=== PATIENT | female | born 1995 | race Two or more races ===

== ENCOUNTER 2017-08-08 19:38 | Emergency (ER) | payer MEDICAID ==
[~2017-08-08] VITALS: Ht 167.6 cm; Wt 77.6 kg
[2017-08-08 21:48] VITALS: BP 113/77
[2017-08-08] MEDS ORDERED: IBUPROFEN 600 MG TAB PO ONE ×2 (22:07→22:15)
== END 2017-08-08 22:17 | disposition home or self-care (01) ==
LOC: ER 19:38
DX: S93.401A Sprain of unspecified ligament of right ankle, initial encounter (principal); S39.012A Strain of muscle, fascia and tendon of lower back, initial encounter; S80.01XA Contusion of right knee, initial encounter; W01.0XXA Fall on same level from slipping, tripping and stumbling without subsequent striking against object, initial encounter; Y93.89 Activity, other specified; Y92.512 Supermarket, store or market as the place of occurrence of the external cause; Y99.8 Other external cause status
CPT/HCPCS: 72100; 73562; 73610

== ENCOUNTER 2017-08-14 20:52 | Emergency (ER) | payer MEDICAID ==
[~2017-08-14] VITALS: Ht 167.6 cm; Wt 77.6 kg
[2017-08-14 21:04] VITALS: BP 150/76
[2017-08-15] MEDS ORDERED: IBUPROFEN 600 MG TAB PO ONE (00:45)
== END 2017-08-15 00:48 | disposition home or self-care (01) ==
LOC: ER 20:52
DX: S93.401A Sprain of unspecified ligament of right ankle, initial encounter (principal); X50.1XXA Overexertion from prolonged static or awkward postures, initial encounter; Y93.89 Activity, other specified; Y92.89 Other specified places as the place of occurrence of the external cause; Y99.8 Other external cause status
CPT/HCPCS: 73700

== ENCOUNTER 2017-11-23 15:58 | Emergency (ER) | payer MEDICAID ==
[~2017-11-23] VITALS: Ht 167.6 cm; Wt 81.6 kg
[2017-11-23 17:15] LABS: Basophils # (auto) 0 uL; Eosinophils # (auto) 0.1 uL; Hematocrit 30.8 % (36.0-46.0); Hemoglobin 9.4 g/dL (12.2-16.2); Mean Corpuscular Hemoglobin 18.4 pg (28.0-32.0); Mean Corpuscular Hgb Conc. 30.5 g/dL (32.0-36.0); Monocytes # (auto) 0.4 uL; Neutrophils # (auto) 5.4 uL
[2017-11-23 17:18] LABS: Basophils % (auto) 0.4 % (0.0-2.0); Lymphocytes # (auto) 1.9 uL; Mean Corpuscular Volume 60.3 fL (80.0-100.0); Monocytes % (auto) 5.3 % (0.0-12.0); Neutrophils % (auto) 69.3 % (37.0-80.0); Nucleated Red Blood Cells % 0.1 %; Platelet Count (auto) 325 10^3/uL (140-450); Red Cell Distribution Width 18.5 % (11.8-14.3); White Blood Cell 7.8 10^3/uL (4.4-10.8)
[2017-11-23 17:22] LABS: Urine Bacteria NONE SEEN /hpf (None Seen); Urine Blood Negative /uL (Negative); Urine Mucus FEW (None Seen); Urine Specific Gravity 1.014 (1.001-1.035); Urine WBC 1 /hpf (0 - 5)
[2017-11-23 17:33] LABS: Calcium 8.3 mg/dL (8.5-10.1); Potassium 3.7 mmol/L (3.5-5.1)
[2017-11-23 17:36] LABS: Albumin 3.7 g/dL (3.4-5.0); BUN/Creatinine Ratio 9.5
[2017-11-23 17:38] LABS: Bilirubin, Total 0.6 mg/dL (0.2-1.0); Total Protein 7.9 g/dL (6.4-8.2)
[2017-11-23] MEDS ORDERED: KETOROLAC TROMETH 30 MG/ML 1ML VIAL IV ONE (21:30)
[2017-11-23] MEDS ORDERED: MORPHINE SULFATE 4 MG/ML SYR/VIAL IV ONE (21:30)
[2017-11-23] MEDS ORDERED: ONDANSETRON HCL 4 MG/2 ML VIAL IV ONE (21:30)
[2017-11-23 21:38] LABS: Amylase 85 U/L (25-115); Lipase 298 U/L (73-393)
[2017-11-23] MEDS ORDERED: SODIUM CHLORIDE 0.9% 1,000 ML IV ONE (21:45)
[2017-11-23 21:50] LABS: INR 0.96 (0.9-1.15); Partial Thromboplastin Time 23.8 sec (22.64-33.71); Prothrombin Time 10.5 sec (9.37-12.3)
[2017-11-23 23:00] VITALS: BP 100/63
[2017-11-24] MEDS ORDERED: HYDROcodone-ACET 7.5/325MG TAB PO ONE
== END 2017-11-24 00:02 | disposition home or self-care (01) ==
LOC: ER 15:58
DX: R10.32 Left lower quadrant pain (principal); D64.9 Anemia, unspecified
CPT/HCPCS: 36415; 74176; 80053; 81001; 81025; 82150; 83690; 85025; 85610; 85730; 96361; 96374; 96375; 99285; J1885; J2270; J2405; J7030

== ENCOUNTER 2017-12-30 22:51 | Emergency (ER) | payer MEDICAID ==
[~2017-12-30] VITALS: Ht 167.6 cm; Wt 79.7 kg
[2017-12-30 23:28] LABS: Urine Bacteria FEW /hpf (None Seen); Urine Blood Negative /uL (Negative); Urine Mucus FEW (None Seen); Urine WBC 5 /hpf (0 - 5)
[2017-12-30 23:37] LABS: Basophils # (auto) 0 uL; Basophils % (auto) 0.7 % (0.0-2.0); Eosinophils # (auto) 0.1 uL; Hemoglobin 8.6 g/dL (12.2-16.2); Neutrophils # (auto) 3.8 uL; Nucleated Red Blood Cells % 0.1 %; Red Cell Distribution Width 18.3 % (11.8-14.3); White Blood Cell 6.9 10^3/uL (4.4-10.8)
[2017-12-30 23:39] LABS: Eosinophils % (auto) 1.7 % (0.0-7.0); Hematocrit 28.5 % (36.0-46.0); Lymphocytes # (auto) 2.6 uL; Lymphocytes % (auto) 36.9 % (10.0-50.0); Mean Corpuscular Hemoglobin 17.7 pg (28.0-32.0); Mean Corpuscular Hgb Conc. 30.2 g/dL (32.0-36.0); Mean Corpuscular Volume 58.5 fL (80.0-100.0); Monocytes # (auto) 0.4 uL; Monocytes % (auto) 6.4 % (0.0-12.0); Neutrophils % (auto) 54.3 % (37.0-80.0); Platelet Count (auto) 286 10^3/uL (140-450); Red Blood Cells 4.87 10^6/uL (4.0-5.20)
[2017-12-30 23:57] LABS: Albumin 3.6 g/dL (3.4-5.0); BUN/Creatinine Ratio 13.6; Calcium 8.6 mg/dL (8.5-10.1); Potassium 3.4 mmol/L (3.5-5.1)
[2017-12-30 23:59] LABS: Bilirubin, Total 0.6 mg/dL (0.2-1.0); Total Protein 7.6 g/dL (6.4-8.2)
[2017-12-31 06:53] VITALS: BP 109/67
== END 2017-12-31 08:05 | disposition home or self-care (01) ==
LOC: ER 22:53
DX: D64.9 Anemia, unspecified (principal); N39.0 Urinary tract infection, site not specified; S06.9X9A Unspecified intracranial injury with loss of consciousness of unspecified duration, initial encounter; W50.0XXA Accidental hit or strike by another person, initial encounter; Y93.67 Activity, basketball; Y99.8 Other external cause status; Y92.89 Other specified places as the place of occurrence of the external cause
CPT/HCPCS: 36415; 70450; 72125; 80053; 81001; 81025; 85025

== ENCOUNTER 2019-12-02 20:59 | Emergency (ER) | payer MEDICAID ==
[~2019-12-02] VITALS: Ht 167.6 cm; Wt 76.2 kg
[2019-12-03 01:39] VITALS: BP 110/67
[2019-12-03] MEDS ORDERED: IBUPROFEN 800 MG TAB PO ONE (01:45)
[2019-12-03] MEDS ORDERED: ONDANSETRON ODT 4 MG TAB PO ONE (01:45)
[2019-12-03] MEDS ORDERED: ACETAMINOPHEN 500 MG TAB PO ONE (01:45)
== END 2019-12-03 02:11 | disposition home or self-care (01) ==
LOC: ER 21:01
DX: M54.2 Cervicalgia (principal); M54.5 Low back pain; R51 Headache; M25.552 Pain in left hip; M25.512 Pain in left shoulder; R42 Dizziness and giddiness; V43.52XA Car driver injured in collision with other type car in traffic accident, initial encounter; Y93.89 Activity, other specified; Y92.488 Other paved roadways as the place of occurrence of the external cause; Y99.8 Other external cause status
CPT/HCPCS: 70450; 73502; 73552; 99284; J7030; Q0162

== ENCOUNTER → 2020-02-15 | Emergency (ER) | payer MEDICAID, OTHER ==
[~2020-02-15] VITALS: Ht 167.6 cm; Wt 81.2 kg
[~2020-02-15] MED LIST: ACETAMINOPHEN 500 MG TAB PO ONE; AMIODARONE 450mg/250ml AE 250 ML IV ONE; AMIODARONE HCL (50 MG/ ML) 3 ML VIAL IV ONE; SODIUM CHLORIDE 0.9% 1,000 ML IV ONE
[2020-02-15 22:25] LABS: Eosinophils # (auto) 0.1 10 ^3/uL (0-0.8); Hemoglobin 8.9 g/dL (12.2-16.2); Lymphocytes # (auto) 1.5 10 ^3/uL (0.4-5.4)
[2020-02-15 22:27] LABS: Basophils # (auto) 0.1 10 ^3/uL (0-0.2); Basophils % (auto) 0.8 % (0.0-2.0); Eosinophils % (auto) 1.3 % (0.0-7.0); Hematocrit 29.5 % (36.0-46.0); Lymphocytes % (auto) 21.9 % (10.0-50.0); Mean Corpuscular Hgb Conc. 30.2 g/dL (32.0-36.0); Mean Corpuscular Volume 56.4 fL (80.0-100.0); Monocytes # (auto) 0.5 10 ^3/uL (0-1.3); Monocytes % (auto) 6.6 % (0.0-12.0); Neutrophils # (auto) 4.9 10 ^3/uL (1.6-8.6); Neutrophils % (auto) 69.4 % (37.0-80.0); Platelet Count (auto) 288 10^3/uL (140-450); Red Blood Cells 5.22 10^6/uL (4.0-5.20)
[2020-02-15 22:32] LABS: Red Cell Distribution Width 20.3 % (11.8-14.3)
[2020-02-15 22:43] LABS: Urine Bacteria FEW /hpf (None Seen); Urine Blood Negative /uL (Negative); Urine Mucus FEW (None Seen); Urine Specific Gravity 1.007 (1.001-1.035); Urine WBC 1 /hpf (0 - 5)
[2020-02-15 22:43] LABS: Albumin 3.7 g/dL (3.4-5.0); BUN/Creatinine Ratio 9.7; Calcium 8.6 mg/dL (8.5-10.1); Potassium 3.7 mmol/L (3.5-5.1)
[2020-02-15 22:46] LABS: Bilirubin, Total 0.6 mg/dL (0.2-1.0); Total Protein 8.1 g/dL (6.4-8.2)
[2020-02-16 01:49] VITALS: BP 110/60
== END | disposition home or self-care (01) ==
LOC: ER 21:58
DX: O26.891 Other specified pregnancy related conditions, first trimester (principal); R10.9 Unspecified abdominal pain; Z3A.01 Less than 8 weeks gestation of pregnancy
CPT/HCPCS: 36415; 76801; 80053; 81001; 81025; 84702; 85025; 99284; J7030

== ENCOUNTER → 2020-03-30 | Emergency (ER) | payer MEDICAID ==
[~2020-03-30] VITALS: Ht 170.2 cm; Wt 81.2 kg
[~2020-03-30] MED LIST changes: +ACETAMINOPHEN 325 MG TAB PO ONE; -ACETAMINOPHEN 500 MG TAB PO ONE; -AMIODARONE 450mg/250ml AE 250 ML IV ONE; -AMIODARONE HCL (50 MG/ ML) 3 ML VIAL IV ONE
[2020-03-31 00:39] LABS: Basophils # (auto) 0 10 ^3/uL (0-0.2); Eosinophils # (auto) 0 10 ^3/uL (0-0.8); Eosinophils % (auto) 0.2 % (0.0-7.0); Hemoglobin 10.5 g/dL (12.2-16.2); Lymphocytes # (auto) 0.3 10 ^3/uL (0.4-5.4); Monocytes # (auto) 0.4 10 ^3/uL (0-1.3); Nucleated Red Blood Cells % 0.1 %
[2020-03-31 00:41] LABS: Basophils % (auto) 0.3 % (0.0-2.0); Hematocrit 32.6 % (36.0-46.0); Lymphocytes % (auto) 7.2 % (10.0-50.0); Mean Corpuscular Hemoglobin 20.4 pg (28.0-32.0); Mean Corpuscular Hgb Conc. 32.3 g/dL (32.0-36.0); Mean Corpuscular Volume 63.1 fL (80.0-100.0); Monocytes % (auto) 7.9 % (0.0-12.0); Neutrophils # (auto) 3.9 10 ^3/uL (1.6-8.6); Neutrophils % (auto) 84.4 % (37.0-80.0); Platelet Count (auto) 185 10^3/uL (140-450); Red Blood Cells 5.18 10^6/uL (4.0-5.20); White Blood Cell 4.7 10^3/uL (4.4-10.8)
[2020-03-31 00:43] LABS: Red Cell Distribution Width 25.8 % (11.8-14.3)
[2020-03-31 00:57] LABS: Calcium 8.4 mg/dL (8.5-10.1); Potassium 3.5 mmol/L (3.5-5.1)
[2020-03-31 00:58] LABS: BUN/Creatinine Ratio 9.5
[2020-03-31 02:07] LABS: Urine Bacteria FEW /hpf (None Seen); Urine Blood Negative /uL (Negative); Urine Mucus FEW (None Seen); Urine Specific Gravity 1.027 (1.001-1.035); Urine WBC 4 /hpf (0 - 5)
[2020-03-31 02:35] VITALS: BP 110/69
== END | disposition home or self-care (01) ==
LOC: ER 21:03
DX: O98.512 Other viral diseases complicating pregnancy, second trimester (principal); U07.1 COVID-19; O99.512 Diseases of the respiratory system complicating pregnancy, second trimester; J18.9 Pneumonia, unspecified organism; J01.00 Acute maxillary sinusitis, unspecified
CPT/HCPCS: 36415; 76700; 80048; 81001; 82728; 84702; 85025; 87070; 87635; 87804; 87880

== ENCOUNTER → 2020-04-07 | Emergency (ER) | payer MEDICAID ==
[~2020-04-07] VITALS: Ht 170.2 cm; Wt 80.7 kg
[2020-04-07 16:13] LABS: Basophils # (auto) 0 10 ^3/uL (0-0.2); Basophils % (auto) 0.3 % (0.0-2.0); Eosinophils # (auto) 0 10 ^3/uL (0-0.8); Lymphocytes # (auto) 1.4 10 ^3/uL (0.4-5.4); Mean Corpuscular Volume 64.2 fL (80.0-100.0); Monocytes # (auto) 0.3 10 ^3/uL (0-1.3); Neutrophils # (auto) 2.2 10 ^3/uL (1.6-8.6); Nucleated Red Blood Cells % 0.1 %
[2020-04-07 16:14] LABS: Anion Gap 6 (5-15); Blood Urea Nitrogen 4 mg/dL (7-18); Calcium 8.6 mg/dL (8.5-10.1); Carbon Dioxide 21 mmol/L (21-32); Chloride 108 mmol/L (98-107); Glucose 86 mg/dL (74-106); Potassium 3.6 mmol/L (3.5-5.1); Sodium 135 mmol/L (136-145)
[2020-04-07 16:15] LABS: Hematocrit 33.8 % (36.0-46.0); Hemoglobin 10.6 g/dL (12.2-16.2); Lymphocytes % (auto) 35.3 % (10.0-50.0); Mean Corpuscular Hemoglobin 20.1 pg (28.0-32.0); Mean Corpuscular Hgb Conc. 31.3 g/dL (32.0-36.0); Monocytes % (auto) 7.8 % (0.0-12.0); Neutrophils % (auto) 55.6 % (37.0-80.0); Platelet Count (auto) 185 10^3/uL (140-450); Red Blood Cells 5.26 10^6/uL (4.0-5.20)
[2020-04-07 16:16] LABS: Red Cell Distribution Width 24.5 % (11.8-14.3)
[2020-04-07 16:21] LABS: Alanine Aminotransferase 22 U/L (13-56); Alkaline Phosphatase 50 U/L (45-117); Aspartate Aminotransferase 16 U/L (15-37); BUN/Creatinine Ratio 8.3; Bilirubin, Total 0.4 mg/dL (0.2-1.0); GFR African American 204 mL/min; GFR Non-African American 169 mL/min; Total Protein 7.4 g/dL (6.4-8.2)
[2020-04-07 20:10] VITALS: BP 106/70
== END | disposition home or self-care (01) ==
LOC: EDUNIT# 14:52 → ER 15:20 → EDBD 15:20
DX: O98.512 Other viral diseases complicating pregnancy, second trimester (principal); U07.1 COVID-19; J06.9 Acute upper respiratory infection, unspecified; O99.012 Anemia complicating pregnancy, second trimester; Z3A.15 15 weeks gestation of pregnancy
CPT/HCPCS: 36415; 80053; 84484; 84702; 85025

== ENCOUNTER 2020-06-21 10:30 | Observation (INO) | payer MEDICAID ==
[2020-06-21] MEDS ORDERED: ACETAMINOPHEN 325 MG TAB PO ONE (13:00)
== END 2020-06-21 13:00 | disposition home or self-care (01) ==
LOC: LDRP 10:30
PROVIDERS: ADMIT Specialist; ATTEND Specialist
DX: O9A.212 Injury, poisoning and certain other consequences of external causes complicating pregnancy, second trimester (principal); O26.892 Other specified pregnancy related conditions, second trimester; R51 Headache; V49.60XA Unspecified car occupant injured in collision with unspecified motor vehicles in traffic accident, initial encounter; Y93.89 Activity, other specified; Y92.89 Other specified places as the place of occurrence of the external cause; Y99.8 Other external cause status; Z3A.26 26 weeks gestation of pregnancy
CPT/HCPCS: 59025; 76815; 81002; G0378

== ENCOUNTER 2020-06-21 13:07 | Emergency (ER) | payer MEDICAID, OTHER ==
[~2020-06-21] VITALS: Ht 170.2 cm; Wt 82.1 kg
[2020-06-21 15:17] VITALS: BP 100/67
== END 2020-06-21 15:57 | disposition home or self-care (01) ==
LOC: ER 13:07
DX: O9A.212 Injury, poisoning and certain other consequences of external causes complicating pregnancy, second trimester (principal); R51 Headache; M54.2 Cervicalgia; R42 Dizziness and giddiness; R20.2 Paresthesia of skin; Z3A.24 24 weeks gestation of pregnancy; V89.2XXA Person injured in unspecified motor-vehicle accident, traffic, initial encounter; Y93.I9 Activity, other involving external motion; Y92.89 Other specified places as the place of occurrence of the external cause; Y99.8 Other external cause status

== ENCOUNTER 2020-09-28 11:36 | Observation (INO) | payer MEDICAID | END 2020-09-28 14:00 | disposition home or self-care (01) | LOC: OB 11:36 → LDRP 12:55 | PROVIDERS: ADMIT Specialist; ATTEND Specialist | DX: O48.0 Post-term pregnancy (principal); Z3A.40 40 weeks gestation of pregnancy | CPT/HCPCS: 59025; 76818; 81002; G0378 ==

== ENCOUNTER 2020-09-30 10:20 | Observation (INO) | payer MEDICAID ==
[2020-09-30] MEDS ORDERED: PREN-96 PO (10:31)
[2020-09-30] MEDS ORDERED: FERR-7 PO (10:43)
[2020-09-30 12:09] LABS: Alcohol, Urine < 3.0 mg/dL (0-10); Amphetamine Screen, Urine NEGATIVE (NEGATIVE); Barbiturate Scree,Urine NEGATIVE (NEGATIVE); Benzodiazephine Screen, Urine NEGATIVE (NEGATIVE); Cannabinoid Screen, Urine NEGATIVE (NEGATIVE); Cocaine Screen, Urine NEGATIVE (NEGATIVE); Opiate Scree,Urine NEGATIVE (NEGATIVE); Phencyclidine Screen, Urine NEGATIVE (NEGATIVE)
[2020-09-30 12:24] LABS: Urine Bacteria MANY /hpf (None Seen); Urine Blood Negative /uL (Negative); Urine Mucus FEW (None Seen); Urine Specific Gravity 1.021 (1.001-1.035); Urine WBC 17 /hpf (0 - 5)
[2020-09-30 12:25] LABS: Basophils # (auto) 0 10 ^3/uL (0-0.2); Basophils % (auto) 0.2 % (0.0-2.0); Eosinophils # (auto) 0 10 ^3/uL (0-0.8); Eosinophils % (auto) 0.7 % (0.0-7.0); Hematocrit 35.2 % (36.0-46.0); Hemoglobin 12.4 g/dL (12.2-16.2); Lymphocytes # (auto) 1.5 10 ^3/uL (0.4-5.4); Mean Corpuscular Hemoglobin 30.4 pg (28.0-32.0); Mean Corpuscular Hgb Conc. 35.3 g/dL (32.0-36.0); Mean Corpuscular Volume 86.3 fL (80.0-100.0); Monocytes # (auto) 0.3 10 ^3/uL (0-1.3); Neutrophils # (auto) 4.5 10 ^3/uL (1.6-8.6); Neutrophils % (auto) 71.1 % (37.0-80.0); Platelet Count (auto) 159 10^3/uL (140-450); Red Blood Cells 4.07 10^6/uL (4.0-5.20); Red Cell Distribution Width 13.4 % (11.8-14.3); White Blood Cell 6.4 10^3/uL (4.4-10.8)
[2020-09-30 12:31] LABS: INR 0.93 (0.9-1.15); Partial Thromboplastin Time 23.3 sec (23.0-31.2)
[2020-09-30 12:32] LABS: Albumin 2.8 g/dL (3.4-5.0); Calcium 8.6 mg/dL (8.5-10.1); Potassium 4.1 mmol/L (3.5-5.1)
[2020-09-30 12:36] LABS: BUN/Creatinine Ratio 15.5; Bilirubin, Total 0.7 mg/dL (0.2-1.0)
[2020-10-02 06:06] LABS: RPR Non Reactive (Non Reactive)
== END 2020-09-30 11:55 | disposition home or self-care (01) ==
LOC: LDRP 10:20
PROVIDERS: ADMIT Obstetrics & Gynecology; ATTEND Obstetrics & Gynecology
DX: O48.0 Post-term pregnancy (principal); O62.9 Abnormality of forces of labor, unspecified; Z3A.40 40 weeks gestation of pregnancy
CPT/HCPCS: 36415; 59025; 76818; 80053; 80307; 81001; 81002; 85025; 85610; 85730; 86592; 86703; 86762; 86850; 86900; 86901; 87340; G0378

== ENCOUNTER 2020-10-03 10:59 | Observation (INO) | payer MEDICAID ==
[~2020-10-03 10:59] MED LIST changes: -ACETAMINOPHEN 325 MG TAB PO ONE; +FERR-7 PO; +PREN-96 PO; -SODIUM CHLORIDE 0.9% 1,000 ML IV ONE
[2020-10-03] MEDS ORDERED: PHISODERM TOP SOLN 240ML BTL TOP PRN (14:30)
[2020-10-03] MEDS ORDERED: LACTATED RINGER'S 1,000 ML IV SCH (14:30)
[2020-10-03] MEDS ORDERED: WITCH HAZEL-GLYCERIN PAD TOP PRN (14:30)
[2020-10-03] MEDS ORDERED: LIDOCAINE 2%HCL (LOCAL ANESTH.) INJ 20ML MDV IJ ONE (14:30)
[2020-10-03] MEDS ORDERED: DERMOPLAST 60ML BOTTLE TOP PRN (14:30)
== END 2020-10-03 12:35 | disposition home or self-care (01) ==
LOC: LDRP 10:59
PROVIDERS: ADMIT Obstetrics & Gynecology; ATTEND Obstetrics & Gynecology
DX: O48.0 Post-term pregnancy (principal); O62.9 Abnormality of forces of labor, unspecified; Z3A.41 41 weeks gestation of pregnancy
CPT/HCPCS: 59025; 76818; 81002; G0378; J7050

== ENCOUNTER 2020-10-03 13:15 | Inpatient (IN) | payer MEDICAID ==
[~2020-10-03] VITALS: Ht 167.6 cm; Wt 86.2 kg
[2020-10-03] MEDS ORDERED: WITCH HAZEL-GLYCERIN PAD TOP PRN (14:30)
[2020-10-03] MEDS ORDERED: PHISODERM TOP SOLN 240ML BTL TOP PRN (14:30)
[2020-10-03] MEDS ORDERED: LIDOCAINE 2%HCL (LOCAL ANESTH.) INJ 20ML MDV IJ ONE ×2 (14:30→15:30)
[2020-10-03] MEDS ORDERED: LACTATED RINGER'S 1,000 ML IV SCH (14:30)
[2020-10-03] MEDS ORDERED: DERMOPLAST 60ML BOTTLE TOP PRN (14:30)
[2020-10-03] MEDS ORDERED: miSOPROStol 50 MCG per PRE-CUT 1/2 TAB PO PRN (15:30)
[2020-10-03 15:52] LABS: Basophils # (auto) 0 10 ^3/uL (0-0.2); Basophils % (auto) 0.2 % (0.0-2.0); Eosinophils # (auto) 0 10 ^3/uL (0-0.8); Eosinophils % (auto) 0.4 % (0.0-7.0); Hematocrit 34.7 % (36.0-46.0); Hemoglobin 12.2 g/dL (12.2-16.2); Lymphocytes # (auto) 1.3 10 ^3/uL (0.4-5.4); Lymphocytes % (auto) 22.3 % (10.0-50.0); Mean Corpuscular Hemoglobin 30.5 pg (28.0-32.0); Mean Corpuscular Hgb Conc. 35.3 g/dL (32.0-36.0); Mean Corpuscular Volume 86.4 fL (80.0-100.0); Monocytes # (auto) 0.3 10 ^3/uL (0-1.3); Monocytes % (auto) 4.8 % (0.0-12.0); Neutrophils # (auto) 4.3 10 ^3/uL (1.6-8.6); Neutrophils % (auto) 72.3 % (37.0-80.0); Nucleated Red Blood Cells % 0.1 %; Platelet Count (auto) 151 10^3/uL (140-450); Red Blood Cells 4.02 10^6/uL (4.0-5.20); Red Cell Distribution Width 13.8 % (11.8-14.3)
[2020-10-03 16:04] LABS: Albumin 2.7 g/dL (3.4-5.0); Calcium 8.5 mg/dL (8.5-10.1); Potassium 3.6 mmol/L (3.5-5.1)
[2020-10-03 16:07] LABS: BUN/Creatinine Ratio 13.6; Bilirubin, Total 0.6 mg/dL (0.2-1.0); Total Protein 6.8 g/dL (6.4-8.2)
[2020-10-03 16:08] LABS: INR 0.93 (0.9-1.15); Partial Thromboplastin Time 23.8 sec (23.0-31.2)
[2020-10-03 16:39] LABS: Urine Bacteria NONE SEEN /hpf (None Seen); Urine Blood Negative /uL (Negative); Urine Mucus FEW (None Seen); Urine Specific Gravity 1.023 (1.001-1.035); Urine WBC 1 /hpf (0 - 5)
[2020-10-03] MEDS: WITCH HAZEL-GLYCERIN PAD TOP PRN (17:11)
[2020-10-03] MEDS: PHISODERM TOP SOLN 240ML BTL TOP PRN (17:12)
[2020-10-03] MEDS: DERMOPLAST 60ML BOTTLE TOP PRN (17:12)
[2020-10-03] MEDS ORDERED: BUTORPHANOL TARTRATE 2 MG/1 ML VIAL IV PRN (21:30)
[2020-10-03] MEDS ORDERED: PROMETHAZINE HCL 25 MG/ML 1ML IV PRN (21:30)
[2020-10-03] MEDS: BUTORPHANOL TARTRATE 2 MG/1 ML VIAL IV PRN (21:46)
[2020-10-03] MEDS: LACTATED RINGER'S 1,000 ML IV SCH (23:15)
[2020-10-04] VITALS (15 sets, daily range): BP systolic 89–110; BP diastolic 53–81
[2020-10-04] MEDS ORDERED: LACT. RINGERS/OXYTOCIN 20UNITS 1,000 ML IV ONE ×2 (01:15→08:30)
[2020-10-04] MEDS ORDERED: LACT. RINGERS/OXYTOCIN 20UNITS 1,000 ML IV SCH (01:15)
[2020-10-04] MEDS: BUTORPHANOL TARTRATE 2 MG/1 ML VIAL IV PRN ×2 (02:18→07:15)
[2020-10-04] MEDS: LACTATED RINGER'S 1,000 ML IV SCH ×4 (02:26→23:07)
[2020-10-04 08:06] LABS: RPR Non Reactive (Non Reactive)
[2020-10-04] MEDS: WITCH HAZEL-GLYCERIN PAD TOP PRN (08:45)
[2020-10-04] MEDS: PHISODERM TOP SOLN 240ML BTL TOP PRN (08:45)
[2020-10-04] MEDS: DERMOPLAST 60ML BOTTLE TOP PRN (08:45)
[2020-10-04] MEDS: IBUPROFEN 600 MG TAB PO PRN ×2 (09:35→23:07)
[2020-10-04] MEDS ORDERED: METHYLERGONOVINE MALEATE 0.2 MG/ML AMP IM ONE ×2 (12:05→13:40)
[2020-10-04 12:49] LABS: Basophils # (auto) 0 10 ^3/uL (0-0.2); Basophils % (auto) 0.1 % (0.0-2.0); Eosinophils # (auto) 0 10 ^3/uL (0-0.8); Hematocrit 27.9 % (36.0-46.0); Hemoglobin 9.9 g/dL (12.2-16.2); Lymphocytes # (auto) 0.8 10 ^3/uL (0.4-5.4); Lymphocytes % (auto) 7.9 % (10.0-50.0); Mean Corpuscular Hemoglobin 30.7 pg (28.0-32.0); Mean Corpuscular Hgb Conc. 35.4 g/dL (32.0-36.0); Mean Corpuscular Volume 86.8 fL (80.0-100.0); Monocytes # (auto) 0.5 10 ^3/uL (0-1.3); Monocytes % (auto) 4.8 % (0.0-12.0); Neutrophils # (auto) 8.7 10 ^3/uL (1.6-8.6); Neutrophils % (auto) 87.2 % (37.0-80.0); Nucleated Red Blood Cells % 0.1 %; Platelet Count (auto) 120 10^3/uL (140-450); Red Blood Cells 3.21 10^6/uL (4.0-5.20); Red Cell Distribution Width 13.5 % (11.8-14.3)
[2020-10-04] MEDS ORDERED: MIDAZOLAM HCL 1MG/1ML-2 ML VIAL ONE (12:52)
[2020-10-04] MEDS ORDERED: fentaNYL CITRATE 100 MCG/2 ML VL ONE (12:52)
[2020-10-04] MEDS ORDERED: ONDANSETRON HCL 4 MG/2 ML VIAL IV PRN (14:15)
[2020-10-04] MEDS ORDERED: miSOPROStol 100 mcg TAB PR ONE ×2 (15:45→16:00)
[2020-10-04] MEDS ORDERED: miSOPROStol 100 mcg TAB SL ONE (15:45)
[2020-10-04] MEDS: ceFAZolin 1GM/50ML 50 ML IV SCH ×2 (15:54→23:56)
[2020-10-04] MEDS ORDERED: ACETAMINOPHEN IV 1000 MG/100ML (10MG/ML) IV ONE (16:00)
[2020-10-04] MEDS ORDERED: ACETAMINOPHEN IV 100 ML IV ONE (16:19)
[2020-10-04 17:57] LABS: Basophils # (auto) 0 10 ^3/uL (0-0.2); Basophils % (auto) 0.2 % (0.0-2.0); Eosinophils # (auto) 0 10 ^3/uL (0-0.8); Hematocrit 30.4 % (36.0-46.0); Hemoglobin 10.5 g/dL (12.2-16.2); Lymphocytes # (auto) 1.1 10 ^3/uL (0.4-5.4); Lymphocytes % (auto) 11.3 % (10.0-50.0); Mean Corpuscular Hemoglobin 30.9 pg (28.0-32.0); Mean Corpuscular Hgb Conc. 34.6 g/dL (32.0-36.0); Mean Corpuscular Volume 89.2 fL (80.0-100.0); Monocytes # (auto) 0.4 10 ^3/uL (0-1.3); Monocytes % (auto) 4.1 % (0.0-12.0); Neutrophils % (auto) 84.4 % (37.0-80.0); Platelet Count (auto) 104 10^3/uL (140-450); Red Cell Distribution Width 13.8 % (11.8-14.3); White Blood Cell 9.5 10^3/uL (4.4-10.8)
[2020-10-04] MEDS ORDERED: miSOPROStol 100 mcg TAB PO ONE (18:43)
[2020-10-04] MEDS ORDERED: ceFAZolin 1GM/50ML 50 ML IV SCH (22:00)
[2020-10-05 03:00] VITALS: BP 101/68
[2020-10-05] MEDS: LACTATED RINGER'S 1,000 ML IV SCH ×2 (03:35→17:53)
[2020-10-05] MEDS: ACETAMINOPHEN 325 MG TAB PO PRN ×2 (05:17→15:46)
[2020-10-05 06:39] LABS: Basophils # (auto) 0 10 ^3/uL (0-0.2); Basophils % (auto) 0.1 % (0.0-2.0); Eosinophils # (auto) 0 10 ^3/uL (0-0.8); Eosinophils % (auto) 0.3 % (0.0-7.0); Hematocrit 24.6 % (36.0-46.0); Hemoglobin 8.6 g/dL (12.2-16.2); Lymphocytes # (auto) 1.6 10 ^3/uL (0.4-5.4); Lymphocytes % (auto) 19.6 % (10.0-50.0); Mean Corpuscular Hemoglobin 31.1 pg (28.0-32.0); Mean Corpuscular Volume 88.7 fL (80.0-100.0); Monocytes # (auto) 0.4 10 ^3/uL (0-1.3); Monocytes % (auto) 4.9 % (0.0-12.0); Neutrophils # (auto) 6.1 10 ^3/uL (1.6-8.6); Neutrophils % (auto) 75.1 % (37.0-80.0); Platelet Count (auto) 99 10^3/uL (140-450); Red Blood Cells 2.77 10^6/uL (4.0-5.20); Red Cell Distribution Width 14.2 % (11.8-14.3); White Blood Cell 8.1 10^3/uL (4.4-10.8)
[2020-10-05 07:30] VITALS: BP 109/72
[2020-10-05] MEDS: ceFAZolin 1GM/50ML 50 ML IV SCH ×3 (07:47→23:48)
[2020-10-05 11:30] VITALS: BP 105/58
[2020-10-05 14:56] VITALS: BP 114/72
[2020-10-05] MEDS: FERROUS SULFATE 325 MG TAB PO SCH (17:31)
[2020-10-05 19:00] VITALS: BP 121/70
[2020-10-05 23:00] VITALS: BP 101/58
[2020-10-05] MEDS: IBUPROFEN 600 MG TAB PO PRN (23:49)
[2020-10-06 03:00] VITALS: BP 104/71
[2020-10-06 07:00] VITALS: BP 98/63
[2020-10-06] MEDS: FERROUS SULFATE 325 MG TAB PO SCH (08:23)
[2020-10-06] MEDS: IBUPROFEN 600 MG TAB PO PRN (09:52)
[2020-10-06] MEDS ORDERED: IBUP400T21 PO (09:59)
[2020-10-06 11:00] VITALS: BP 101/65
[2020-10-06 11:40] VITALS: BP 111/77
== END 2020-10-06 12:18 | disposition home or self-care (01) | DRG 541 ==
LOC: LDRP 13:15
PROVIDERS: ADMIT Specialist; ATTEND Specialist
PROC: 10D07Z6 Extraction of Products of Conception, Vacuum, Via Natural or Artificial Opening (ICD-10-PCS; 2020-10-04)
PROC: 0HQ9XZZ Repair Perineum Skin, External Approach (ICD-10-PCS; 2020-10-04)
PROC: 0W8NXZZ Division of Female Perineum, External Approach (ICD-10-PCS; 2020-10-04)
PROC: 10D17Z9 Manual Extraction of Products of Conception, Retained, Via Natural or Artificial Opening (ICD-10-PCS; 2020-10-04)
PROC: 30233N1 Transfusion of Nonautologous Red Blood Cells into Peripheral Vein, Percutaneous Approach (ICD-10-PCS; principal; 2020-10-04 12:45)
DX: O48.0 Post-term pregnancy (principal); O77.0 Labor and delivery complicated by meconium in amniotic fluid; O69.81X0 Labor and delivery complicated by cord around neck, without compression, not applicable or unspecified; O70.0 First degree perineal laceration during delivery; Z3A.41 41 weeks gestation of pregnancy; Z37.0 Single live birth; Z20.822 Contact with and (suspected) exposure to COVID-19; O72.0 Third-stage hemorrhage
CPT/HCPCS: 36415; 36430; 59025; 59200; 59409; 80053; 81001; 81002; 85025; 85610; 85730; 86592; 86850; 86900; 86901; 86920; 87426; 96360; 96361; 96365; 96372; 96375; G0378; J0131; J0690; J2250; J2590

== ENCOUNTER 2021-11-16 05:19 | Emergency (ER) | payer MEDICAID ==
[~2021-11-16] VITALS: Ht 170.2 cm; Wt 81.6 kg
[~2021-11-16 05:19] MED LIST changes: +IBUP400T22 PO
[2021-11-16 06:37] LABS: Urine Bacteria FEW /hpf (None Seen); Urine Blood TRACE /uL (Negative); Urine Mucus FEW (None Seen); Urine WBC 32 /hpf (0 - 5)
[2021-11-16] MEDS ORDERED: NITR-87 PO (07:16)
[2021-11-16] MEDS ORDERED: PANT40TA2 PO (07:16)
[2021-11-16] MEDS ORDERED: PANTOPRAZOLE 40 MG TAB PO ONE (07:30)
[2021-11-16 07:31] LABS: Basophils # (auto) 0 10 ^3/uL (0-0.2); Basophils % (auto) 0.3 % (0.0-2.0); Eosinophils # (auto) 0.1 10 ^3/uL (0-0.8); Eosinophils % (auto) 0.8 % (0.0-7.0); Hematocrit 37.4 % (36.0-46.0); Hemoglobin 12.3 g/dL (12.2-16.2); Lymphocytes # (auto) 1.5 10 ^3/uL (0.4-5.4); Lymphocytes % (auto) 19.5 % (10.0-50.0); Mean Corpuscular Hemoglobin 23.8 pg (28.0-32.0); Mean Corpuscular Hgb Conc. 32.9 g/dL (32.0-36.0); Mean Corpuscular Volume 72.4 fL (80.0-100.0); Monocytes # (auto) 0.3 10 ^3/uL (0-1.3); Neutrophils # (auto) 5.7 10 ^3/uL (1.6-8.6); Neutrophils % (auto) 75.4 % (37.0-80.0); Nucleated Red Blood Cells % 0.1 %; Red Blood Cells 5.16 10^6/uL (4.0-5.20); Red Cell Distribution Width 15.8 % (11.8-14.3); White Blood Cell 7.6 10^3/uL (4.4-10.8)
[2021-11-16 07:44] LABS: Albumin 3.8 g/dL (3.4-5.0); Calcium 9.2 mg/dL (8.5-10.1)
[2021-11-16 07:47] LABS: BUN/Creatinine Ratio 18.8; Bilirubin, Total 0.6 mg/dL (0.2-1.0); Total Protein 7.8 g/dL (6.4-8.2)
[2021-11-16 09:50] VITALS: BP 124/81
== END 2021-11-16 10:01 | disposition home or self-care (01) ==
LOC: ER 05:19
DX: N39.0 Urinary tract infection, site not specified (principal)
CPT/HCPCS: 36415; 80053; 81001; 81025; 83690; 85025